=== PATIENT | female | born 1975 | race Hispanic/Latino ===

== ENCOUNTER 2019-02-23 17:29 | Emergency (ER) | payer SELFPAY ==
[2019-02-23 17:30] VITALS: BP 119/67; PULSE 63; PULSE 66; RESP 16; TEMP 36.1; O2SAT 100; O2SAT 99; BMI 25.9
--- NOTE | 2019-02-23 18:21 | ED.DCSUM_ITS ---
History of Present Illness Chief Complaint: Allergic Reaction Informant: Patient, Family Onset: Today Context: Gradual Onset Timing: Continuous Narrative: Patient is a 43-year-old female with no significant past medical history presenting with redness and swelling around her eyes bilaterally. Patient states it is itchy. She states she woke up with it this morning. She denies any new lotions, body washes, detergents, foods or other new exposures. She states she did go out to dinner last night but does not think she ate anything novel. She denies any swelling of her throat, difficulty breathing, wheezing, nausea, vomiting or other rash. She denies any vision changes. She does have a mild headache. She denies any other complaints at this time. She does not take any medication for her symptoms prior to arrival. Patient does not currently have a PCP she is along with an [facility] for 6 months. Patient is Bengali-speaking but does speak [place] and her translates as needed. 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 Past Medical History - Allergies and Home Meds Allergies/Adverse Reactions: Allergies No Known Allergies Allergy (Verified 02/23/19 17:45) Primary Care Physician: Care Physician,No Primary [Primary Care Provider] - Past Medical History: None Surgical History: noncontributory Lives: With Family Smoking Status: Never smoker Review of Systems General: Denies: Chills, Fever, Sweats Eyes: Denies: Visual changes - bilaterally, Diplopia ENT: Denies: Rhinorrhea, Sore throat Cardiovascular: Denies: Chest pain, Palpitations Respiratory: Denies: Dyspnea, Cough, Dyspnea on exertion Gastrointestinal: Denies: Abdominal pain, Nausea, Vomiting, Diarrhea, Melena, Hematochezia Genitourinary: Denies: Dysuria, Hematuria, Frequency Musculoskeletal: Denies: Back pain, Extremity Pain Skin: Reports: Rash - Redness and swelling of face lateral to the eyes bilaterally. Denies: Wounds Neurological: Denies: Headache, Weakness, Numbness Allergy: Denies: Uticaria, Swelling of the mouth, Swelling of the tongue Physical Exam Vital Signs/Narrative: Vital Signs Temp Pulse Resp BP Pulse Ox 02/23/19 17:30 97.0 F L 66 16 119/67 100 Inital Vital Signs reviewed: Yes General: Well nourished, Well developed, No Acute Distress Head: Normocephalic, Atraumatic Eyes: Perrl, EOMI ENT: Moist mucous membranes, No rhinorrhea, TM's clear, - - Normal oropharynx with no edema appreciated. Negative for: Nasal congestion, Sinus tenderness Neck: Supple, Nontender Cardiovascular: Regular rate, Regular rhythm, No murmurs Respiratory: No distress, CTA bilaterally, Chest nontender. Negative for: Wheezing Abdomen: Soft, Nontender, Nondistended, Normal bowel sounds Back: Nontender, Normal Inspection Extremities: Nontender, No edema Skin: Normal color, - - Mild erythema and edema bilateral temporal/periorbital area consistent with some type of allergic reaction Neurological: Alert, Oriented x3, Cranial nerves II-XII grossly intact, Normal Strength, Normal Sensation Psychological: Normal affect, Normal Mood Diagnostic/Tx/Re-eval - Medical Decision Making Patient evaluated for 1 day of redness and swelling around her eyes. Is consistent with an allergic reaction. I do not suspect preseptal cellulitis. She is no pain with eye motion. She has no other findings consistent with allergic reaction to suggest anaphylaxis. Patient not sure what caused a reaction but does know she sometimes has seasonal allergies. Patient started on prednisone burst as well as Zyrtec. She is given a dose of Claritin as well as a first dose of prednisone in the emergency room. Patient is referred to PCP if she does not have one. She is counseled that the itching should improve over the next few days but the rash might linger for over a week. She is instructed to also use Benadryl as needed. Patient is counseled on signs and symptoms requiring return to the emergency room. Patient verbalizes agreement and understand this plan. Patient discharged home in stable and improved condition. ED Disposition - Plan for ED Patient: Disposition: Home or Assisted Living Diagnosis: Facial swelling, Allergic reaction Instructions: ALLERGIC REACTION, Other (Local) Prescriptions: Prednisone [Deltasone] 40 mg PO DAILY #8 tab Prescription Printed Cetirizine HCl [Zyrtec] 10 mg PO DAILY #14 cap Prescription Printed Referrals: Yvonne Dumas MD [STAFF PHYSICIAN] - Additional Instructions: I suspect the redness and swelling is from some type of allergic reaction however I am not sure what is causing it. It could be something you ate, came in contact with or something in the environment. In addition to the medicines prescribed today you may also take 1 to 2 tablets of Benadryl every 6 hours as needed for symptoms. Please follow-up with a primary care doctor later in the week for reevaluation. Return to emergency room for worsening symptoms.
[2019-02-23] MEDS: predniSONE 20 MG Tablet 60 MG PO (18:43)
[2019-02-23] MEDS: Loratadine 10 MG Tablet PO (18:44)
== END 2019-02-23 18:45 | disposition home or self-care (01) ==
PROVIDERS: Emergency Provider Emergency Medicine
DX: T78.40XA Allergy, unspecified, initial encounter (principal); R22.0 Localized swelling, mass and lump, head; R51 Headache
CPT/HCPCS: 99283

== ENCOUNTER → 2019-12-22 | Outpatient (CLI) | payer SELFPAY ==
--- NOTE | 2019-12-22 14:55 | BI_ITS ---
MAMMOGRAPHY - BILATERAL SCREENING REASON FOR EXAM: Female, 44 years old. Routine annual screening examination. PERTINENT HISTORY: Non-contributory. TECHNIQUE: Digital bilateral breast nanci (3D mammographic acquisition) in the CC and MLO projections. 2-D mediolateral oblique (MLO) and craniocaudad (CC) views of both breasts were obtained. CAD: Full Field Digital Mammography with Computer Added Detection was performed. COMPARISON: None. Baseline examination. FINDINGS: Breast Composition: The breasts are heterogeneously dense, which may obscure small masses. There are no dominant masses or suspicious calcifications. Small benign-appearing bilateral axillary lymph nodes. No other significant abnormalities are identified. BI/SCREEN MAMM (CAD) W/NANCI BILAT IMPRESSION: Negative screening mammogram. Yearly followup mammogram recommended. (A) ASSESSMENT CATEGORY: BIRADS Category 2: Benign. A letter regarding these results will be sent to the patient by the facility within 30 days. Approximately 10% of breast cancers are not detected by mammography. A normal mammogram should not delay biopsy of a clinically suspicious abnormality. [id number] Electronically Signed: Alex Crowell, at 8:24 EDT , Service support ,
== END | disposition home or self-care (01) ==
DX: Z12.31 Encounter for screening mammogram for malignant neoplasm of breast (principal)
CPT/HCPCS: 77063; 77067

== ENCOUNTER → 2020-01-14 | Outpatient (CLI) | payer SELFPAY ==
--- NOTE | 2020-01-14 12:32 | US_ITS ---
STUDY: ULTRASOUND BREAST - BILATERAL REASON FOR EXAM: Female, 44 years old. Axillary lymph nodes. TECHNIQUE: Axial and longitudinal images of the BILATERAL breast were performed with a high resolution ultrasound transducer. # OF IMAGES: 79 COMPARISON: Comparison is made with prior mammogram dated 12/22/2019. FINDINGS: BILATERAL Breast: Imaging of both breasts was performed with ultrasound. There is homogeneous fibroglandular tissue. No sonographic abnormality is seen. US/Breast Complete Bilateral IMPRESSION: No sonographic abnormality is seen. ASSESSMENT CATEGORY: BIRADS Category 1: Negative. A letter regarding these results will be sent to the patient by the facility within 30 days. Electronically Signed: Alex Crowell, at 14:52 EDT , Service support ,
== END | disposition home or self-care (01) ==
DX: D36.0 Benign neoplasm of lymph nodes (principal)
CPT/HCPCS: 76641